=== PATIENT | female | born 1975 | race Caucasian/White ===

== ENCOUNTER → 2018-08-18 | Outpatient (CLI) | payer OTHER ==
--- NOTE | 2018-08-19 07:15 | MM ---
Reason for exam: additional evaluation requested from prior study. Last mammogram was performed 1 year and 10 months ago. History: Patient is postmenopausal. Family history of premenopausal breast cancer in mother at age 32, breast cancer in maternal grandmother at age 40, and breast cancer in 2 maternal aunts. Physical Findings: Nurse did not find any significant physical abnormalities on exam. MG 3D Diag Mammo W/Cad LAURI Bilateral CC and MLO view(s) were taken. Prior study comparison: October 31, 2016, left breast MG 3d work up w/cad LT. October 29, 2016, bilateral MG 3d screening mammo w/cad. The breast tissue is extremely dense which could obscure a lesion on mammography. Finding: There is a 5 mm circumscribed round mass in the upper outer quadrant, posterior position of the right breast, partly calcification. There is a chronic nodularity bilaterally. New finding since October 31, 2016 and October 29, 2016. These results were verbally communicated with the patient and result sheet given to the patient on 08/18/18. ASSESSMENT: Incomplete: need additional imaging evaluation, BI-RAD 0 RECOMMENDATION: Ultrasound of both breasts.
--- NOTE | 2018-08-19 07:17 | USB ---
Reason for exam: additional evaluation requested from abnormal screening. History: Patient is postmenopausal. Family history of premenopausal breast cancer in mother at age 32, breast cancer in maternal grandmother at age 40, and breast cancer in 2 maternal aunts. US Breast Limited BILAT Left complete breast ultrasound includes all four quadrants, the retroareolar region and axilla. Finding demonstrates a 0.5 x 0.4 x 0.4cm cystic, stable lesion at 12 o'clock. Right limited breast ultrasound including focal area of concern, retroareolar and axilla demonstrates a 0.5 x 0.4 x 0.4cm cystic, stable lesion at 10 o'clock, correlates with mammogram. These results were verbally communicated with the patient and result sheet given to the patient on 08/18/18. ASSESSMENT: Benign, BI-RAD 2 RECOMMENDATION: Routine screening mammogram of both breasts in 1 year. Manage patient on a clinical basis.
== END | disposition home or self-care (01) ==
LOC: RADMAMWWP 14:10
PROVIDERS: ATTEND Pediatrics
DX: R92.8 Other abnormal and inconclusive findings on diagnostic imaging of breast (principal); N60.02 Solitary cyst of left breast
CPT/HCPCS: 77066; 76642; G0279; 77062

== ENCOUNTER → 2019-11-06 | Outpatient (CLI) | payer OTHER ==
--- NOTE | 2019-11-07 02:46 | MR ---
EXAMINATION TYPE: MR knee RT wo con DATE OF EXAM: 11/06/2019 COMPARISON: HISTORY: Rt knee pain x 1 year, no trauma Multiplanar multiecho imaging of the right knee was performed without contrast. There is mild knee joint effusion. There are posterior synovial cysts posterior to the lateral femora l condyle. The anterior and posterior cruciate ligaments are intact. There is minimal subcutaneous ed felix over the anterior knee. The medial meniscus is intact. Lateral meniscus is intact. The collateral ligaments are intact. Joint spaces are fairly normal. IMPRESSION: Mild knee joint effusion with synovial or popliteal cyst. No evidence of ligamentous tear. No fracture. No evidence of meniscal tear.
== END | disposition home or self-care (01) ==
LOC: RADMRIMAIN 19:57
PROVIDERS: ATTEND Pediatrics
DX: M25.461 Effusion, right knee (principal)

== ENCOUNTER → 2019-11-23 | Outpatient (CLI) | payer OTHER | END | disposition home or self-care (01) | LOC: RADMAMWWP 16:55 | PROVIDERS: ATTEND Pediatrics | DX: Z12.31 Encounter for screening mammogram for malignant neoplasm of breast (principal) | CPT/HCPCS: 77063; 77067 ==

== ENCOUNTER → 2019-12-15 | Outpatient (CLI) | payer OTHER ==
--- NOTE | 2019-12-16 09:07 | USB ---
Reason for exam: clinical finding. History: Patient is postmenopausal. Family history of premenopausal breast cancer in mother at age 32, breast cancer in maternal grandmother at age 40, and breast cancer in 2 maternal aunts. Indicated problem(s): pain in the left breast. Physical Findings: Nurse Summary: Patient complains of left beast pain, intermittent sharp x 2 months/1year, left breast pain with palpation (nurse mj). US Breast LT Left complete breast ultrasound includes all four quadrants, the retroareolar region and axilla. Finding demonstrates a 0.8 x 0.5 x 0.7cm cystic cluster at 12 o'clock, a 0.5 x 0.6 x 0.6cm cystic cluster at 6 o'clock, stable from 2015 and 2018 ultrasound studies. No significant new cystic or solid lesion greater than 0.50cm. These results were verbally communicated with the patient and result sheet given to the patient on 12/15/19. ASSESSMENT: Benign, BI-RAD 2 RECOMMENDATION: Return to routine screening mammogram schedule for both breasts. Manage on a clinical basis with regard to left pain.
== END | disposition home or self-care (01) ==
LOC: RADUSWWP 14:03
PROVIDERS: ATTEND Pediatrics
DX: N64.4 Mastodynia (principal)

== ENCOUNTER → 2020-06-25 | Outpatient (CLI) | payer OTHER ==
--- NOTE | 2020-06-25 12:07 | MR ---
EXAMINATION TYPE: MR lumbar spine wo/w con DATE OF EXAM: 06/25/2020 8:58 AM COMPARISON: NONE HISTORY: LBP, BLE radic, hx L4-L5 laminectomy CONTRAST: The patient was injected with 7 mL intravenous Gadavist gadolinium contrast. Multiplanar, MultiSpin echo imaging of the lumbar spine was performed. L1-L2: Normal disc appearance without desiccation. No herniation, protrusion or disc bulging. No ca nal stenosis is present. Foramina are patent bilaterally. L2-L3: Normal disc appearance without desiccation. No herniation, protrusion or disc bulging. No ca nal stenosis is present. Foramina are patent bilaterally. L3-L4: Normal disc appearance without desiccation. No herniation, protrusion or disc bulging. No ca nal stenosis is present. Foramina are patent bilaterally. L4-L5: Mild disc desiccation. Minimal posterior disc bulge. Patient indicates history of laminectomy at this level however I do not see evidence for laminectomy at this level. There is no evidence for h erniation or central stenosis. No foraminal encroachment. L5-S1: Moderate to severe disc desiccation. Minimal posterior disc bulge. No herniation protrusion or central stenosis. Mild right foraminal encroachment. 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 Lumbar segments are intact. No paraspinal masses are identified. Conus medullaris has a normal appe arance. IMPRESSION: 1. Degenerative disc disease and minimal disc bulging is noted.
== END | disposition home or self-care (01) ==
LOC: RADMRIMAIN 08:08
PROVIDERS: ATTEND Pediatrics
DX: M51.26 Other intervertebral disc displacement, lumbar region (principal); M51.36 Other intervertebral disc degeneration, lumbar region; Z98.890 Other specified postprocedural states
CPT/HCPCS: 72158; A9585

== ENCOUNTER → 2020-07-27 | Outpatient (CLI) | payer OTHER ==
--- NOTE | 2020-07-28 07:46 | CT ---
EXAMINATION TYPE: CT urogram wo/w con DATE OF EXAM: 07/27/2020 COMPARISON: None HISTORY: Hematuria. No other complaints. CT DLP: 1095.40 mGycm CONTRAST: Performed and with IV Contrast, patient injected with 100 mL of Isovue 300. CT Urography was performed with unenhanced followed by enhanced images of the kidneys, ureters and ur inary bladder. Delayed images were obtained. 3d reconstruction was perfromed at a separate work sta tion. FINDINGS: KIDNEYS/BLADDER: No hydronephrosis. No nephrolithiasis. No distinct renal mass. Urinary bladder gr ossly unremarkable. LUNG BASES-: No visible nodule. No infiltrate. LIVER/GB: No calcified gallstones. No space occupying hepatic lesion. Biliary tree is of normal ca liber. PANCREAS: No inflammation. No distinct mass. SPLEEN: No splenic enlargement. No lesion seen. ADRENALS: No nodule. No thickening. BOWEL: Normal appendix. Normal bowel caliber. No inflammation. GENITAL ORGANS: No gross abnormality. LYMPH NODES: No greater than 1cm abdominal or pelvic lymph nodes are appreciated. AORTA: No significant abnormality. OSSEOUS STRUCTURES: No significant abnormality is seen. OTHER: No significant additional abnormality is seen. IMPRESSION: 1. No significant abnormality to account for the patient's symptoms of hematuria. Clinical correlatio n is advised.
== END | disposition home or self-care (01) ==
LOC: RADCTMAIN 17:35
PROVIDERS: ATTEND Urology
DX: R31.9 Hematuria, unspecified (principal); Z88.1 Allergy status to other antibiotic agents; Z88.5 Allergy status to narcotic agent
CPT/HCPCS: 74178; 74400; Q9967

== ENCOUNTER → 2021-04-14 | Outpatient (CLI) | payer OTHER ==
--- NOTE | 2021-04-14 10:09 | MM ---
Reason for exam: clinical finding. Last mammogram was performed 1 year and 5 months ago. History: Patient is postmenopausal. Family history of premenopausal breast cancer in mother at age 32, breast cancer in maternal grandmother at age 40, and breast cancer in 2 maternal aunts. Physical Findings: Nurse did not find any significant physical abnormalities on exam. MG 3D Diag Mammo W/Cad LAURI Bilateral CC and MLO view(s) were taken. Prior study comparison: November 23, 2019, bilateral MG 3d screening mammo w/cad. August 18, 2018, bilateral MG 3d diag mammo w/cad LAURI. The breast tissue is heterogeneously dense. This may lower the sensitivity of mammography. No significant new findings when compared with previous films. These results were verbally communicated with the patient and result sheet given to the patient on 04/14/21. ASSESSMENT: Incomplete: need additional imaging evaluation, BI-RAD 0 RECOMMENDATION: Ultrasound of the right breast. (focal pain)
--- NOTE | 2021-04-14 10:11 | USB ---
Reason for exam: additional evaluation requested from abnormal screening. History: Patient is postmenopausal. Family history of premenopausal breast cancer in mother at age 32, breast cancer in maternal grandmother at age 40, and breast cancer in 2 maternal aunts. US Breast Limited RT Right limited breast ultrasound including focal area of concern, retroareolar and axilla demonstrates no cystic or solid lesion seen. No sonographic finding at right breast pain. These results were verbally communicated with the patient and result sheet given to the patient on 04/14/21. ASSESSMENT: Benign, BI-RAD 2 RECOMMENDATION: Routine screening mammogram of both breasts in 1 year.
== END | disposition home or self-care (01) ==
LOC: RADMAMWWP 07:38
PROVIDERS: ATTEND Pediatrics
DX: R92.2 Inconclusive mammogram (principal); Z78.0 Asymptomatic menopausal state; Z80.3 Family history of malignant neoplasm of breast
CPT/HCPCS: 77066; 76642; G0279; 77062

== ENCOUNTER → 2022-10-08 | Outpatient (CLI) | payer OTHER ==
--- NOTE | 2022-10-09 12:06 | MM ---
Reason for Exam: Screening (asymptomatic). Last mammogram was performed 1 year(s) and 6 month(s) ago. Patient History: Menarche at age 7. First Full-Term at age 15. Right ovary removed at age 27. Hysterectomy at age 27. Postmenopausal. Maternal grandmother had breast cancer, age 40. Maternal aunt had breast cancer. Maternal aunt had breast cancer. Mother had breast cancer, age 32. Risk Values: Becky 5 year model risk: 1.9%. NCI Lifetime model risk: 17.7%. Prior Study Comparison: 08/18/2018 Bilateral Diagnostic Mammogram, [facility]. 11/23/2019 Bilateral Screening Mammogram, [facility]. 04/14/2021 Bilateral Diagnostic Mammogram, [facility]. Tissue Density: The breast tissue is heterogeneously dense. This may lower the sensitivity of mammography. Findings: Analyzed By CAD. There is 4 mm round mass in the anterior upper outer quadrant right breast redemonstrated that is stable. There is no suspicious new group of microcalcifications or new distortion in either breast. Overall Assessment: Benign, BI-RAD 2 Management: Screening Mammogram of both breasts in 1 year. A clinical breast exam by your physician is recommended on an annual basis and results should be correlated with mammographic findings. Electronically signed and approved by: Mike Puri M.D.
== END | disposition home or self-care (01) ==
LOC: RADMAMWWP 16:50
PROVIDERS: ATTEND Pediatrics
DX: Z12.31 Encounter for screening mammogram for malignant neoplasm of breast (principal)
CPT/HCPCS: 77063; 77067

== ENCOUNTER → 2023-10-18 | Outpatient (CLI) | payer OTHER ==
--- NOTE | 2023-10-21 01:16 | MM ---
Reason for Exam: Screening (asymptomatic). Last screening mammogram was performed 12 month(s) ago. Patient History: Menarche at age 7. First Full-Term at age 15. Right ovary removed at age 27. Hysterectomy at age 27. Postmenopausal. Maternal grandmother had breast cancer, age 40. Maternal aunt had breast cancer, age 35. Maternal aunt had breast cancer. Mother had breast cancer, age 32. Risk Values: Becky 5 year model risk: 2.0%. NCI Lifetime model risk: 17.4%. Prior Study Comparison: 11/23/2019 Bilateral Screening Mammogram, [facility]. 04/14/2021 Bilateral Diagnostic Mammogram, [facility]. 10/08/2022 Bilateral MG 3D screening mammo w/cad, [facility]. Tissue Density: There are scattered fibroglandular densities. Findings: Analyzed By CAD. Chronic nodularity on the right. There is no suspicious group of microcalcifications or new suspicious mass in either breast. Overall Assessment: Benign, BI-RAD 2 Management: Screening Mammogram of both breasts in 1 year. . Patient should continue monthly self-breast exams. A clinical breast exam by your physician is recommended on an annual basis. This exam should not preclude additional follow-up of suspicious palpable abnormalities. Note on Becky scores and lifetime risk: 1. A Becky score greater than 3% is considered moderate risk. If this is the case, consider specialist referral to assess eligibility for a risk reducing agent. 2. If overall lifetime risk for the development of breast cancer is 20% or higher, the patient may qualify for future screening with alternating mammogram and breast MRI. Electronically signed and approved by: Santino Man M.D. Radiologist
== END | disposition home or self-care (01) ==
LOC: RADMAMWWP 07:27
PROVIDERS: ATTEND Pediatrics
DX: Z12.31 Encounter for screening mammogram for malignant neoplasm of breast (principal); Z78.0 Asymptomatic menopausal state; Z80.3 Family history of malignant neoplasm of breast
CPT/HCPCS: 77063; 77067